=== PATIENT | male | born 1975 | race Caucasian/White ===

== ENCOUNTER 2016-07-04 08:04 | Emergency (ER) | payer OTHER ==
--- NOTE | ~2016-07-04 | CR127 ---
[facility] A Service of [facility] & [facility] [place] RADIOLOGY TEXT RESULTS PATIENT: JOHN TREVINO LOCATION: [facility] : 73 UNIT #: [id number] AGE: [address]: Dayron Reynolds MD SEX: M ORDER DR: [id number] [facility] [address]. [place], [place] [address] [id number] MR#: [id number] Acc #: [id number] NAME: JOHN TREVINO : 1975 SEX: M STUDY DATE/TIME: 07/04/2016 6:53 UNIT: CFTX ROOM: STUDY DESCRIPTION: CR Foot Complete Min 3 View Rt Attending Physician: Dayron Reynolds M.D. Ordering Physician: Dayron Reynolds M.D. Primary Care Physician: Dominick Samuel M.D. MEDICAL IMAGING REPORT This report is preliminary unless electronic signature is present EXAM Right foot, 3 views COMPARISON 3 views of the right ankle on the same date. INDICATIONS 41-year-old male with right foot pain for 3 days after twisting injury. FINDINGS There is moderate enthesophyte at the plantar fascial attachment of the calcaneus with intrasubstance calcification of the proximal plantar fascia. No evidence of acute fracture of the bones of the foot. Bones of the foot are anatomically aligned. There is note of fracture fixation hardware of the medial malleolus and of the lateral malleolus which are incompletely imaged. There is a fracture through the second most inferior cortical screw at the lateral fracture fixation plate of the lateral malleolus. There is nonunited fracture through the medial malleolus which is bridged by cortical screws which appear to be intact. There is also nonunited fracture at the distal fibula at the level of the syndesmosis. IMPRESSION 1. No acute fracture or dislocation of the right foot. 2. Moderate enthesopathy at the plantar fascial attachment of the calcaneus. 3. Nonunited fractures of the medial and lateral malleoli. There is a fracture of the second most inferior cortical screw passing through the fracture fixation plate at the lateral malleolus. There is diastasis at both the medial and lateral malleolar fracture sites. Orthopedic consultation recommended for consideration of hardware revision. [facility] A Service of [facility] RADIOLOGY TEXT RESULTS PATIENT: JOHN TREVINO LOCATION: [facility] : 73 UNIT #: [id number] AGE: [address]: Dayron Reynolds MD SEX: M ORDER DR: Dictated by... Claudio Ny M.D. THIS IS AN ELECTRONICALLY VERIFIED REPORT Claudio Ny M.D. at 07/07/2016 10:09 AM MICHAEL/radha TD: 07/04/2016 17:54 JOB #: [id number] MEDICAL IMAGING REPORT Page 1 of 1 COPY
--- NOTE | ~2016-07-04 | CR21 ---
[facility] A Service of [facility] RADIOLOGY TEXT RESULTS PATIENT: JOHN TREVINO LOCATION: [facility] : 73 UNIT #: [id number] AGE: [address]: Dayron Reynolds MD SEX: M ORDER DR: [id number] [facility] [address] [place] [address] [place], [place] [address] [id number] MR#: [id number] Acc #: [id number] NAME: JOHN TREVINO : 1975 SEX: M STUDY DATE/TIME: 07/04/2016 6:55 UNIT: CFTX ROOM: STUDY DESCRIPTION: CR Ankle Min 3 Views Rt Attending Physician: Dayron Reynolds M.D. Ordering Physician: Dayron Reynolds M.D. Primary Care Physician: Dominick Samuel M.D. MEDICAL IMAGING REPORT This report is preliminary unless electronic signature is present EXAM Right ankle, 3 views COMPARISON 3 views of the right foot on the same day. INDICATIONS 41-year-old male with right ankle pain and swelling for 3 days. This occurred after a twisting injury. FINDINGS Lateral fracture fixation plate is seen at the distal fibula with interlocking cortical screws. There also cortical lag screws passing through the medial malleolus into the distal tibia. There is widening of the ankle mortise. There is a chronic-appearing fracture line through the distal fibula with diastasis and a gap of approximately 5 mm. There is slight lateral displacement of the distal fragment. There is also a fracture of 1 of the interlocking cortical screws passing through the lateral malleolus. This is the second most inferior screw. There is a lucency between the cortex of the fibula and the lateral fracture fixation plate of approximately 1 mm. There is also nonunion of the fracture at the medial malleolus with diastases of approximately 7 mm. There is moderate sized enthesophyte at the plantar fascial attachment of the calcaneus with intrasubstance calcification within the proximal plantar fascia. IMPRESSION 1. There are chronic appearing fractures which are nonunited through the distal fibula a the level of the syndesmosis and through the medial malleolus. There is approximately a 4 mm gap between fracture fragments of the distal fibula and fracture of the second most inferior interlocking cortical screw of the fracture fixation plate at the lateral malleolus. Given the site of the nonunited fracture [facility] A Service of [facility] [place] RADIOLOGY TEXT RESULTS PATIENT: JOHN TREVINO LOCATION: [facility] : 73 UNIT #: [id number] AGE: [address]: Dayron Reynolds MD SEX: M ORDER DR: line and the ankle mortise widening this likely still reflects an unstable injury and orthopedic consultation is recommended for consideration of surgical revision. There is also a nonunited fracture with diastasis through the medial malleolus which is bridged by cortical screws which appear to be intact without convincing evidence of loosening. 2. Soft tissue swelling noted at the ankle. No convincing evidence of an acute bony fracture. Dictated by... Claudio Ny M.D. THIS IS AN ELECTRONICALLY VERIFIED REPORT Claudio Ny M.D. at 07/07/2016 10:06 AM MICHAEL/radha TD: 07/04/2016 17:40 JOB #: [id number] MEDICAL IMAGING REPORT Page 1 of 1 COPY
== END 2016-07-04 08:30 | disposition home or self-care (01) ==
LOC: CED 08:04
DX: S93.401A Sprain of unspecified ligament of right ankle, initial encounter (principal); F17.210 Nicotine dependence, cigarettes, uncomplicated; X50.1XXA Overexertion from prolonged static or awkward postures, initial encounter; Y92.098 Other place in other non-institutional residence as the place of occurrence of the external cause
CPT/HCPCS: 29515; 73610; 73630; 99283